=== PATIENT | female | born 1985 | race Caucasian/White ===

== ENCOUNTER 2020-12-16 20:27 | Emergency (ER) | payer BC ==
[~2020-12-16] VITALS: Ht 180.3 cm; Wt 113.6 kg
--- NOTE | 2020-12-16 20:35 | PHYS DOC ---
Past History Past Medical History: STD, UTI Past Medical History Hx. gonorrhea and chlamydia as a teenager. Was treated. Past Surgical History: Cholecystectomy, , Tonsillectomy Smoking: Cigarettes General Adult HPI: HPI: ".. I having a really .. irregular .. painful period.. the bleeding has stopped.. but I am still cramping... " Patient is a 35 year old female who presents with above hx and complaints abdomen cramping and irregular.. Onset of cramping started yesterday. Has had large menses with clots. Patient advises up until 2 and half months ago her periods been very regular. She does have a remote history of dysfunctional uterine bleeding which was treated with control. Patient denies any trauma. Patient denies any ill contacts. No recent travel. Has had approximately 30 unprotected sex partners in her lifetime. Has had cholecystectomy and tonsillectomy. Has a previous . Patient last Pap exam 2 and half years ago's was normal. No history of coagulopathy with her or family members.. Does have remote history of ovarian cyst which cause similar pain. Patient not currently following with primary care. Patient is not worried about STD. No history of vaginal discharge prior to onset of.period. Denies concerns sexual transmitted infection at this time. Patient has had history of gonorrhea and chlamydia when she was a teenager. Patient states her mean length of periods is 5 days. No new meds. No health food or hormone replacements. Patient denies any excessive use of NSAIDs. Patient denies any recent travel or specific ill contacts. Patient denies any history immunosuppression. Patient denies any fever/ chills. Review of Systems: Review of Systems: Constitutional: Denies fever or chills Eyes: Denies change in visual acuity HENT: Denies nasal congestion or sore throat Respiratory: Denies cough or shortness of breath Cardiovascular: Denies chest pain or edema GI: Complains of abdominal pain. Denies, nausea, vomiting, bloody stools or diarrhea . Complaints of abnormal menses : Denies dysuria Musculoskeletal: Denies back pain or joint pain Integument: Denies rash Neurologic: Denies headache, focal weakness or sensory changes Endocrine: Denies polyuria or polydipsia Lymphatic: Denies swollen glands Psychiatric: Denies depression or anxiety Family History: Family History: Noncontributory to presentation Current Medications: Current Meds: See nursing for home meds Allergies: Allergies: No known drug allergies Physical Exam: PE: Constitutional: in moderately acute distress, non-toxic appearance. [] HENT: Normocephalic, atraumatic, bilateral external ears normal, oropharynx moist, no oral exudates, nose normal. [] Eyes: PERRLA, EOMI, conjunctiva normal, no discharge. [] Neck: Normal range of motion, no tenderness, supple, no stridor. [] Cardiovascular:Heart rate regular rhythm, no murmur [] Lungs & Thorax: Bilateral breath sounds clear to auscultation [] Abdomen: Bowel sounds normal, soft, umbilicus and lower pelvic tenderness, no masses, no pulsatile masses. Rebound pain to umbilicus area. Mild distention. Old surgery scars. (Declines pelvic or rectal exam at this time.) Skin: Warm, dry, no erythema, no rash. [] Back: No tenderness, no CVA tenderness. [] Extremities: No tenderness, no cyanosis, no clubbing, ROM intact, no edema. No psoas sign. Neurologic: Alert and oriented X 3, normal motor function, normal sensory function, no focal deficits noted. [] Psychologic: Affect normal, judgement normal, mood normal. [] EKG: EKG: [] Radiology/Procedures: Radiology/Procedures: [address] [address] IMAGING REPORT Signed PATIENT: TONY LEDEZMA ACCOUNT: [id number] : 1985 LOCATION: ER AGE: 35 SEX: F EXAM STATUS: REG ER ORD. PHYSICIAN: NATALY MARISCAL MD REASON: Abdomen pain, cramping, irregular periods PROCEDURE: ACUTE ABDOMEN SERIES INDICATION: Reason: Abdomen pain, cramping, irregular periods / Spl. Instructions: / History: COMPARISON: None. IMPRESSION: 3 views of the chest and abdomen obtained. No focal airspace consolidation or pulmonary edema. Cardiac silhouette is unremarkable. Surgical clips at the right upper quadrant of the abdomen. Moderate stool throughout the colon. Degenerative changes of the right hip. Calcifications in the bilateral pelvis could be from phleboliths. Air scattered throughout the large and small bowel in a grossly nonobstructive pattern. Electronically signed by: Brenda Ureña MD (12/16/2020 10:25 PM) [id number] DICTATED AND SIGNED BY: BRENDA UREÑA MD DATE: 12/16/202221 CC: NATALY MARISCAL MD; PCP,NO ~MTH0 [address] [address] IMAGING REPORT Signed PATIENT: TONY LEDEZMA ACCOUNT: [id number] : 1985 LOCATION: ER AGE: 35 SEX: F EXAM STATUS: REG ER ORD. PHYSICIAN: NATALY MARISCAL MD REASON: Eval. Uterine- per Radiology recommendation PROCEDURE: TRANSVAGINAL Transvaginal pelvic ultrasound HISTORY: Abnormal CT abdomen and pelvis. Abnormal uterine hypodensity on recent CT imaging. Patient reports recent passage of a blood clot from the vagina after the patient CT scanner. FINDINGS: Anteverted uterus measures 9.5 x 5.7 x 4.7 cm. Imaged cervix, endocervical canal and lower uterine segment are normal. No uterine mass. Endometrium thickness 1.1 cm. Right ovary measures 2.7 x 1.4 cm. Left ovary measures 3.3 x 2.7 x 2.3 cm. No ovarian masses. Small ovarian follicles noted. There is intact bilateral ovarian blood flow. No pelvic fluid. IMPRESSION: Normal exam. No mass lesion of the lower uterine segment or cervix evident. The hypodensity on prior CT imaging may have been a transient blood clot given that the patient reports passing a basilar blood clot shortly after the CT study. Electronically signed by: Rosanne Castillo MD (12/17/2020 1:29 AM) [facility] [place] DICTATED AND SIGNED BY: ROSANNE CASTILLO MD DATE: 12/17/20124 CC: NATALY MARISCAL MD; PCP,NO ~MTH0 0 [][address] [address] IMAGING REPORT Signed PATIENT: TONY LEDEZMA ACCOUNT: [id number] : 1985 LOCATION: ER AGE: 35 SEX: F EXAM STATUS: REG ER ORD. PHYSICIAN: NATALY MARISCAL MD REASON: Severe abomen pain, cramping, irregular periods Omni 300 75cc PROCEDURE: CT ABD PELV W/ORAL&IV CONTRAST INDICATION: Reason: Severe abomen pain, cramping, irregular periods Omni 300 75cc / Spl. Instructions: / History: . COMPARISON: None. TECHNIQUE: Axial CT images obtained through the abdomen and pelvis with contrast. One or more of the following individualized dose reduction techniques were utilized for this examination: 1. Automated exposure control; 2. Adjustment of the mA and/or kV according to patient size; 3. Use of iterative reconstruction technique. FINDINGS: Calcified granuloma the right chest base. Abdominal aorta is not aneurysmal. There are some borderline-sized lymph nodes in the groin bilaterally. No intrahepatic bile duct dilation. Postcholecystectomy changes. No peripancreatic fluid collection. Splenic calcified granulomas. No left-sided hydronephrosis. Urinary bladder is partially distended. No right-sided hydronephrosis. Urinary bladder is partially distended. There is a large low density area at the lower uterine segment to cervical region which measures up to approximately 27 x 38 mm and appears contiguous with the endometrial stripe with peripheral enhancement. No periappendiceal inflammatory changes. Right greater than left hip degenerative changes. Degenerative changes the spine. IMPRESSION: * Low-density region is seen at the lower uterine segment to cervical region which appears contiguous with the endometrial stripe. Would correlate with physical exam findings since possible causes would include a mass at the cervical region or a region of cervical stenosis with resultant fluid and blood products proximal to the stenosis. Another possible cause would include an endometrial mass or hyperplasia within the lower uterine segment. Pelvic ultr asound may be helpful to further evaluate how much of this structure is solid and how much is cystic in nature. Electronically signed by: Brenda Ureña MD (12/16/2020 11:39 PM) [id number] DICTATED AND SIGNED BY: BRENDA UREÑA MD DATE: 12/16/20 1204 CC: NATALY MARISCAL MD; PCP,NO ~MTH0 [address] [address] IMAGING REPORT Signed DICTATED AND SIGNED BY: BRENDA UREÑA MD DATE: 12/16/20 2832 CC: NATALY MARISCAL MD; PCP,UNKNOWN ~MTH0 0 Heart Score: Risk Factors: Risk Factors: DM, Current or recent (<one month) smoker, HTN, HLP, family history of CAD, obesity. Risk Scores: Score 0 - 3: 2.5% MACE over next 6 weeks - Discharge Home Score 4 - 6: 20.3% MACE over next 6 weeks - Admit for Clinical Observation Score 7 - 10: 72.7% MACE over next 6 weeks - Early Invasive Strategies Course & Med Decision Making: Course & Med Decision Making Pertinent Labs and Imaging studies reviewed. (See chart for details) Patient follow-up with primary care and have them review ED work-up and findings. Recommend clear fluid diet for the next couple days. No solids or milk products allow bowel rest. Reexam if no improvement. Take Tylenol and ibuprofen as needed for pain. Follow-up pending cultures. Disc of ultrasound and CT sent with patient for her follow-up with primary care. Impression: 1. Abdomen Pain 2. Dysfunctional uterine bleeding 3. Ovarian cyst [] Dragon Disclaimer: Dragon Disclaimer: This electronic medical record was generated, in whole or in part, using a voice recognition dictation system. Departure Departure: Referrals: PCP,NO (PCP) Scripts Hydrocodone/Ibuprofen (HYDROCODONE-IBUPROFEN 7.5-200 ) 1 Each Tablet 1 TAB PO PRN Q6HRS PRN for PAIN, #30 TAB 0 Refills Prov: NATALY MARISCAL MD 12/17/20 Dragon Disclaimer This chart was dictated in whole or in part using Voice Recognition software in a busy, high-work load, and often noisy Emergency Department environment. It may contain unintended and wholly unrecognized errors or omissions. NATALY MARISCAL MD Dec 16, 2020 20:35
[2020-12-16 21:42] LABS: BACTERIA,URINE 0 /HPF (0-FEW); BILIRUBIN,URINE NEG (NEG); CLARITY,URINE CLEAR; COLOR,URINE YELLOW; GLUCOSE,URINE NEG (NEG); NITRITE,URINE NEG (NEG); RBC,URINE 0 /HPF (0-2); SQUAMOUS EPITHELIAL CELL,UR OCC /LPF; UROBILINOGEN,URINE 0.2 mg/dL (0.2 mg/dL); WBC,URINE 0 /HPF (0-4)
[2020-12-16 21:43] LABS: AMPHETAMINE/METHAMPHETAMINE NEG (NEG); BARBITURATES NEG (NEG); BENZODIAZEPINES NEG (NEG); CANNABINOIDS NEG (NEG); COCAINE NEG (NEG); METHADONE NEG (NEG); OPIATES POS (NEG); PHENCYCLIDINE NEG (NEG)
[2020-12-16] MEDS ORDERED: ONDANSETRON PF 4 MG/2 ML VIAL. IVP ONE (21:45)
[2020-12-16] MEDS ORDERED: IV RINGERS SOLUTION,LACTATED 1,000 ML IV SCH (21:45)
[2020-12-16] MEDS ORDERED: FAMOTIDINE 20 MG/2 ML VIAL IVP ONE (21:45)
[2020-12-16] MEDS ORDERED: KETOROLAC 30 MG/ML VIAL. IVP ONE (21:45)
[2020-12-16] MEDS ORDERED: IOHEXOL 240 MG/ML 50ML VIAL. ONE (21:51)
[2020-12-16] MEDS ORDERED: IOHEXOL 300 MG/ML 75 ML VIAL. IV ONE (22:00)
[2020-12-16 22:20] LABS: BASO # 0.1 x10^3/uL (0.0-0.2); BASO % 1 % (0-3); EOS # 0.2 x10^3/uL (0.0-0.7); EOS % 2 % (0-3); HEMATOCRIT 42.3 % (36.0-47.0); HEMOGLOBIN 13.7 g/dL (12.0-15.5); LYMPH # 2.7 x10^3/uL (1.0-4.8); LYMPH % 19 % (24-48); MEAN CORPUSCULAR HEMOGLOBIN 32 pg (25-35); MEAN CORPUSCULAR HGB CONC 32 g/dL (31-37); MEAN CORPUSCULAR VOLUME 98 fL (79-100); MONO # 0.8 x10^3/uL (0.0-1.1); MONO % 6 % (0-9); NEUT # 10.1 x10^3uL (1.8-7.7); NEUT % 73 % (31-73); PLATELET COUNT 332 x10^3/uL (140-400); RED BLOOD COUNT 4.33 x10^6/uL (3.50-5.40); RED CELL DISTRIBUTION WIDTH 13.6 % (11.5-14.5); WHITE BLOOD COUNT 13.9 x10^3/uL (4.0-11.0)
[2020-12-16 22:24] LABS: CALCIUM 8.7 mg/dL (8.5-10.1); GFR 62.4; POTASSIUM 3.8 mmol/L (3.5-5.1)
--- NOTE | 2020-12-16 22:28 | RAD ---
INDICATION: Reason: Abdomen pain, cramping, irregular periods / Spl. Instructions: / History: COMPARISON: None. IMPRESSION: 3 views of the chest and abdomen obtained. No focal airspace consolidation or pulmonary edema. Cardia c silhouette is unremarkable. Surgical clips at the right upper quadrant of the abdomen. Moderate sto ol throughout the colon. Degenerative changes of the right hip. Calcifications in the bilateral pelvi s could be from phleboliths. Air scattered throughout the large and small bowel in a grossly nonobstr uctive pattern. Electronically signed by: Rajat Tamayo MD (12/16/2020 10:25 PM) [id number]
[2020-12-16 22:30] LABS: ALBUMIN 3.7 g/dL (3.4-5.0); DIRECT BILIRUBIN 0.1 mg/dL (0.0-0.2); TOTAL BILIRUBIN 0.3 mg/dL (0.2-1.0); TOTAL PROTEIN 7.1 g/dL (6.4-8.2)
--- NOTE | 2020-12-16 23:42 | RAD ---
INDICATION: Reason: Severe abomen pain, cramping, irregular periods Omni 300 75cc / Spl. Instructions : / History: . COMPARISON: None. TECHNIQUE: Axial CT images obtained through the abdomen and pelvis with contrast. One or more of the following individualized dose reduction techniques were utilized for this examinat ion: 1. Automated exposure control; 2. Adjustment of the mA and/or kV according to patient size; 3 . Use of iterative reconstruction technique. FINDINGS: Calcified granuloma the right chest base. Abdominal aorta is not aneurysmal. There are some borderline-sized lymph nodes in the groin bilaterally. No intrahepatic bile duct dilation. Postcholecystectomy changes. No peripancreatic fluid collection. Splenic calcified granulomas. No left-sided hydronephrosis. Urinary bladder is partially distended. No right-sided hydronephrosis. Urinary bladder is partially distended. There is a large low density area at the lower uterine segment to cervical region which measures up t o approximately 27 x 38 mm and appears contiguous with the endometrial stripe with peripheral enhance ment. No periappendiceal inflammatory changes. Right greater than left hip degenerative changes. Degenerative changes the spine. IMPRESSION: * Low-density region is seen at the lower uterine segment to cervical region which appears contiguou s with the endometrial stripe. Would correlate with physical exam findings since possible causes woul d include a mass at the cervical region or a region of cervical stenosis with resultant fluid and blo od products proximal to the stenosis. Another possible cause would include an endometrial mass or hyp erplasia within the lower uterine segment. Pelvic ultrasound may be helpful to further evaluate how m uch of this structure is solid and how much is cystic in nature. Electronically signed by: Rajat Tamayo MD (12/16/2020 11:39 PM) [id number]
--- NOTE | 2020-12-17 01:31 | RAD ---
Transvaginal pelvic ultrasound HISTORY: Abnormal CT abdomen and pelvis. Abnormal uterine hypodensity on recent CT imaging. Patient r eports recent passage of a blood clot from the vagina after the patient CT scanner. FINDINGS: Anteverted uterus measures 9.5 x 5.7 x 4.7 cm. Imaged cervix, endocervical canal and lower uterine segment are normal. No uterine mass. Endometrium thickness 1.1 cm. Right ovary measures 2.7 x 1.4 cm. Left ovary measures 3.3 x 2.7 x 2.3 cm. No ovarian masses. Small ovarian follicles noted. Th ere is intact bilateral ovarian blood flow. No pelvic fluid. IMPRESSION: Normal exam. No mass lesion of the lower uterine segment or cervix evident. The hypodensi ty on prior CT imaging may have been a transient blood clot given that the patient reports passing a basilar blood clot shortly after the CT study. Electronically signed by: Darren Castillo MD (12/17/2020 1:29 AM) [facility]
[2020-12-17] MEDS ORDERED: HYDR-1179 PO (02:19)
[2020-12-17 02:41] VITALS: BP 122/87
== END 2020-12-17 02:41 | disposition home or self-care (01) ==
LOC: ER 20:27
DX: N93.8 Other specified abnormal uterine and vaginal bleeding (principal); N83.209 Unspecified ovarian cyst, unspecified side; R10.33 Periumbilical pain; N92.6 Irregular menstruation, unspecified; F17.210 Nicotine dependence, cigarettes, uncomplicated; Z87.440 Personal history of urinary (tract) infections; Z90.49 Acquired absence of other specified parts of digestive tract; Z98.890 Other specified postprocedural states
CPT/HCPCS: 36415; 74022; 74177; 76830; 80048; 80076; 80307; 81001; 81025; 82150; 83690; 85025; 87491; 87591; 96361; 96374; 96375; 99285; J1885; J2405; J3490; J7120; Q9967